=== PATIENT | male | born 1975 | race Caucasian/White ===

== ENCOUNTER 2023-03-17 11:49 | Emergency (ER) | payer OTHER, SELFPAY ==
--- NOTE | 2023-03-17 | XR_ITS ---
The [address] [address] Patient Name: MIGUELINA YAP MRN: [id number] date: 1975 Sex: M Assigned Patient Location: ER Current Patient Location: ER Accession/Order Number: [id number] Exam Date: 03/17/2023 11:25 Report Date: 03/17/2023 12:37 At the request of: JENN WASSERMAN Procedure: XR knee RT 4V PROCEDURE: XR knee RT 4V COMPARISON: None. HISTORY: knee pain FINDINGS: BONES:1.1 x 0.1 mm calcific density identified along the anterior inferior patella seen only on lateral projection. No dislocation. SOFT TISSUES:Prepatellar soft tissue swelling EFFUSION:None visible. OTHER: Negative. IMPRESSION: Suspected avulsion fracture inferior anterior patellar Electronically authenticated by: SHAUN SPEARS Date: 03/17/2023 12:37
== END 2023-03-17 12:04 | disposition home or self-care (01) ==
LOC: ER 12:10
PROVIDERS: Emergency Provider Emergency Medicine
DX: S83.91XA Sprain of unspecified site of right knee, initial encounter (principal); W10.9XXA Fall (on) (from) unspecified stairs and steps, initial encounter
CPT/HCPCS: 73564; 99283